=== PATIENT | male | born 1955 | race Caucasian/White ===

== ENCOUNTER 2019-05-03 11:03 | Observation (INO) | payer MEDICARE ==
[2019-05-03] MEDS ORDERED: TORAdol 30 mg Injection IV PRN (12:30)
[2019-05-03] MEDS ORDERED: Sodium Chloride 0.9% 1000 ML 1,000 ML IV STA (12:31)
[2019-05-03 13:05] LABS: Hematocrit 43.2 % (42-50); Hemoglobin 13.6 gm/dl (12.5-18.0); Mean Cell Volume 87.8 fl (78-100); Mean Corpuscular Hemoglobin 27.6 pg (26-32); Mean Corpuscular Hgb Concent. 31.5 g/dl (32-36); Mean Platelet Volume 11.5 fl (6-9.5); Platelet Count 211 K/mm3 (150-450); Red Blood Count 4.92 M/mm3 (4.1-5.6); Red Cell Distribution Width 21.1 % (11.5-14.0); White Blood Count 6.3 K/mm3 (4.0-10.5)
[2019-05-03 13:11] LABS: ALBUMIN 4.1 g/dL (3.5-5.0); ANION GAP 18.3 MEQ/L (5-15); BILIRUBIN,TOTAL 0.6 mg/dL (0.2-1.3); Calcium 9.4 mg/dL (8.4-10.2); Creatinine 1 1.33 mg/dL (0.66-1.25); Potassium 4.2 mmol/L (3.5-5.1); Total Protein 7.4 g/dL (6.3-8.2)
[2019-05-03] MEDS: Nicoderm CQ 21 MG TOP SCH (13:11)
--- NOTE | 2019-05-03 13:41 | XRAY ---
Indication: Short of breath. Comparison: October 29, 2006. PA/lateral chest hyperinflated with new subtle lingula infiltrate versus atelectasis. Remaining lungs clear with incidental right apical calcified granuloma. Heart is not enlarged with new moderate size hiatal hernia. Bony thorax intact. Impression: Again COPD with new lingula infiltrate/atelectasis and hiatal hernia.
--- NOTE | 2019-05-03 13:43 | XRAY ---
Indication: Chronic low back pain 30 years. Comparison: None 5 views of the lumbar spine demonstrates 5 lumbar vertebral segments in normal alignment with vertebral body heights/disc spaces maintained. Minimal multilevel endplate spurring, mild bilateral L5-S1 degenerative facet hypertrophy, scattered aortoiliac calcifications, and left-sided surgical clips. No acute fracture, subluxation, or pars interarticularis defect. Impression: Nonacute lumbar spine with chronic features.
[2019-05-03] MEDS: Flomax 0.4 MG PO SCH ×2 (13:54→22:28)
[2019-05-03] MEDS: PROVENTIL COMMON CANISTER IH SCH ×2 (13:58→17:30)
[2019-05-03] MEDS: XANAX 1 MG PO SCH ×2 (14:02→22:28)
[2019-05-03] MEDS: Sodium Chloride 0.9% 1000 ML 1,000 ML IV SCH (14:02)
[2019-05-03 19:42] LABS: Appearance SLIGHTLY CLOUDY (CLEAR); Bacteria MODERATE /HPF (NEGATIVE); Bilirubin NEGATIVE (NEGATIVE); Blood SMALL Ery/ul (0-5); Glucose 50 mg/dL (NEGATIVE); Ketones NEGATIVE (NEGATIVE); Leukocyte Esterase LARGE (NEGATIVE); Mucus SLIGHT /HPF (NEGATIVE); Nitrite POSITIVE (NEGATIVE); Protein,Urine Dip NEGATIVE (Negative); Specific Gravity 1.016 (1.005-1.025); Urobilinogen NEGATIVE mg/dL (0-1); WBC 26-50 /HPF (0-5)
[2019-05-03] MEDS ORDERED: Zocor 10MG PO SCH (22:00)
[2019-05-03] MEDS ORDERED: NON-FORMULARY ITEM (Lovastatin [Lovastatin] 10 MG) PO SCH (22:00)
[2019-05-03] MEDS: Lopressor 25MG Tab PO SCH (22:28)
[2019-05-04] MEDS: Sodium Chloride 0.9% 1000 ML 1,000 ML IV SCH (00:26)
[2019-05-04] MEDS ORDERED: PROVENTIL COMMON CANISTER IH SCH (07:00)
[2019-05-04 08:00] VITALS: O2SAT 93
[2019-05-04] MEDS: Lopressor 25MG Tab PO SCH (09:56)
[2019-05-04] MEDS: XANAX 1 MG PO SCH ×2 (09:56→14:48)
[2019-05-04] MEDS: Flomax 0.4 MG PO SCH (09:56)
[2019-05-04] MEDS: Nicoderm CQ 21 MG TOP SCH (09:57)
[2019-05-04] MEDS ORDERED: ROCEPHIN 1 Gm-D5w 50 ml Bag** 1 G/50 ML IVPB IV SCH (10:00)
[2019-05-04] MEDS ORDERED: Zithromax 500 MG/ 250 ML NaCl Premix 500 MG/250 ML IVPB IV SCH (10:00)
[2019-05-04 12:27] VITALS: BP 132/85; PULSE 93
--- NOTE | 2019-05-04 15:42 | PCM.SSS ---
History of Present Illness - Chief Complaint Chief Complaint: shortness of breath for 2-3 days History of Present Illness: see History and Physical from office - Review of Systems Constitutional: No Fever, No Chills Eyes: No Symptoms Ears, Nose, & Throat: No Symptoms Respiratory: Cough, Orthopnea, Short Of Breath, Wheezing Cardiac: No Chest Pain, No Edema, No Syncope Abdominal/Gastrointestinal: No Abdominal Pain, No Nausea, No Vomiting, No Diarrhea Genitourinary Symptoms: No Dysuria Musculoskeletal: No Back Pain, No Neck Pain Skin: No Rash Neurological: No Dizziness, No Focal Weakness, No Sensory Changes Psychological: No Symptoms Endocrine: No Symptoms Hematologic/Lymphatic: No Symptoms Immunological/Allergic: No Symptoms Medications & Allergies Home Medications: Home Medication List Alprazolam 1 mg [Xanax 1 mg] 1 mg PO TID 04/30/16 [History Confirmed 05/03] Lovastatin 10 mg PO HS 04/30/16 [History Confirmed 05/03/19] Tamsulosin HCl 0.4 mg [Flomax 0.4 MG] 0.4 mg PO BID 04/30/16 [History Confirmed 05/03/19] Metoprolol Tartrate 25 mg PO BID 05/03/19 [History Confirmed 05/03/19] Cephalexin Mh 500 mg [Keflex 500 mg] 500 mg PO QID #30 capsule 05/04/19 [Rx] Ketorolac Tromethamine [Toradol] 10 mg PO TID #20 tablet 05/04/19 [Rx] Allergies/Adverse Reactions: Allergies Allergy/AdvReac Type Severity Reaction Status Date / Time morphine Allergy Verified 05/03/19 13:29 - Past Medical History Past Medical History: Yes Neurological History: No Pertinent History ENT History: No Pertinent History Cardiac History: No Pertinent History Respiratory History: COPD Endocrine Medical History: No Pertinent History Musculoskelatal History: Other GI Medical History: GI Bleed, Ulcer History: Kidney Cancer Pyscho-Social History: Anxiety Male Reproductive Disorders: No Pertinent History Comment: traumatic injury to back - Past Surgical History Past Surgical History: Yes Cardiac History: No Pertinent History Respiratory Surgery: No Pertinent History GI Surgical History: No Pertinent History Genitourinary Surgical Hx: Kidney Surgery Musculskeletal Surgical Hx: No Pertinent History - Social History Smoking Status: Former smoker Alcohol: Daily Drug Use: none - Physical Exam Vital Signs: Vital Signs - 24 hr Temp Pulse Resp BP Pulse Ox 05/04/19 12:00 97.9 F 93 H 20 132/85 93 L 05/04/19 07:59 98.4 F 97 H 20 167/93 93 L 05/04/19 06:49 98 H 16 94 L 05/04/19 04:05 98.5 F 102 H 20 178/98 93 L 05/04/19 00:20 98.6 F 134 H 26 H 165/101 91 L 05/03/19 20:00 98.6 F 118 H 20 147/89 92 L 05/03/19 15:38 98.1 F 112 H 18 138/79 92 L General Appearance: no apparent distress, alert Neurologic Exam: alert, oriented x 3, cooperative, normal mood/affect, nml cerebellar function, nml station & gait, sensation nml, No motor deficits Eye Exam: PERRL/EOMI, eyes nml inspection Ears, Nose, Throat Exam: normal ENT inspection, TMs normal, pharynx normal, moist mucous membranes Neck Exam: normal inspection, non-tender, supple, full range of motion Respiratory Exam: crackles/rales, rhonchi, wheezing, No respiratory distress Cardiovascular Exam: regular rate/rhythm, normal heart sounds, normal peripheral pulses Gastrointestinal/Abdomen Exam: soft, normal bowel sounds, No tenderness, No mass Back Exam: normal inspection, normal range of motion, No CVA tenderness, No vertebral tenderness Extremity Exam: normal inspection, normal range of motion, pelvis stable Skin Exam: normal color, warm, dry, No rash Lymphatic Exam: No adenopathy Results - Labs Lab/Micro Results: Lab Results-Last 24 Hours 05/03/19 Range/Units 19:13 Urine Color YELLOW (YELLOW) Urine Appearance SLIGHTLY CLOUDY (CLEAR) Urine pH 5.0 (5-6) Ur Specific [place] 1.016 (1.005-1.025) Urine Protein NEGATIVE (Negative) Urine Ketones NEGATIVE (NEGATIVE) Urine Blood SMALL (0-5) Jose Alfredo/ul Urine Nitrite POSITIVE (NEGATIVE) Urine Bilirubin NEGATIVE (NEGATIVE) Urine Urobilinogen NEGATIVE (0-1) mg/dL Ur Leukocyte Esterase LARGE (NEGATIVE) Urine WBC (Auto) 26-50 (0-5) /HPF Urine RBC (Auto) NONE (0-2) /HPF U Epithel Cells (Auto) NONE (FEW) /HPF Urine Bacteria (Auto) MODERATE (NEGATIVE) /HPF Urine Mucus (Auto) SLIGHT (NEGATIVE) /HPF Urine Culture Reflexed YES (NO) Urine Glucose 50 (NEGATIVE) mg/dL - Radiology Impressions Radiology Exams & Impressions: Radiology Procedures Category Date Time Status CHEST 2 VIEWS (PA AND LAT) Routine Exams 05/03/19 13:27 Completed LUMBAR COMPLETE (MIN 4 VIEWS) Routine Exams 05/03/19 12:30 Completed Assessment/Plan (1) Pneumonia Current Visit: Yes Status: Acute Qualifiers: Pneumonia type: due to unspecified organism Laterality: right Assessment & Plan: PA/lateral chest hyperinflated with new subtle lingula infiltrate versus atelectasis. Remaining lungs clear with incidental right apical calcified granuloma. Heart is not enlarged with new moderate size hiatal hernia. Bony thorax intact. Impression: Again COPD with new lingula infiltrate/atelectasis and hiatal hernia. will start on rocephin and zithromax IV, then D/C home with oral cephalexin 500 mg po qid for 7 days Code(s): J18.9 - PNEUMONIA, UNSPECIFIED ORGANISM (2) UTI (urinary tract infection) Current Visit: Yes Status: Acute Qualifiers: Urinary tract infection type: site unspecified Hematuria presence: without hematuria Qualified Code(s): N39.0 - Urinary tract infection, site not specified Code(s): N39.0 - URINARY TRACT INFECTION, SITE NOT SPECIFIED Hospital Summary - Hospital Course Hospital Course: Chief Complaint Diagnosis shortness of breath for 2-3 days Allergies Allergy/AdvReac Type Severity Reaction Status Date / Time morphine Allergy Verified 05/03/19 13:29 Vital Signs (Last 24 hours) Temp Pulse Resp BP Pulse Ox 05/04/19 12:00 97.9 F 93 H 20 132/85 93 L 05/04/19 07:59 98.4 F 97 H 20 167/93 93 L 05/04/19 06:49 98 H 16 94 L 05/04/19 04:05 98.5 F 102 H 20 178/98 93 L 05/04/19 00:20 98.6 F 134 H 26 H 165/101 91 L 05/03/19 20:00 98.6 F 118 H 20 147/89 92 L Home Medications Medication Instructions Recorded Confirmed Last Taken Type Metoprolol Tartrate 25 mg PO BID 10/01/19 10/01/19 10/01/19 History 25 Current Medications Generic Name Dose Route Start Last Admin Trade Name Freq PRN Reason Stop Dose Admin Albuterol Sulfate 2 puff 05/04/19 07:00 05/04/19 06:47 Proventil Common Canister IH 06/02/19 06:59 2 puff 0700 JANELLE Administration Alprazolam 1 mg 05/03/19 15:00 05/04/19 14:48 Xanax 1 Mg PO 06/02/19 14:59 Not Given TID JANELLE Sodium Chloride 1,000 mls @ 100 mls/hr 05/03/19 13:45 05/04/19 00:26 Sodium Chloride 0.9% 1000 Ml IV 06/02/19 13:44 100 mls/hr .Q10H JANELLE Administration Azithromycin 500 mg in 250 mls @ 250 mls/hr 05/04/19 10:00 05/04/19 10:01 Zithromax 500 Mg/ 250 Ml Nacl Premix IV 06/03/19 09:59 250 mls/hr Q24H10 JANELLE Administration Ceftriaxone Sodium/Dextrose 1 g in 50 mls @ 100 mls/hr 05/04/19 10:00 09:23 Rocephin 1 Gm-D5w 50 Ml Bag IV 06/03/19 09:59 100 mls/hr Q24H10 JANELLE Administration Ketorolac Tromethamine 30 mg 05/03/19 12:30 05/04/19 04:36 Toradol 30 Mg Injection IV 05/08/19 12:29 30 mg Q8H PRN PRN Administration PAIN Metoprolol Tartrate 25 mg 05/03/19 22:00 05/04/19 09:56 Lopressor 25mg Tab PO 06/02/19 21:59 25 mg BID JANELLE Administration Nicotine 21 mg 05/03/19 12:30 05/04/19 09:57 Nicoderm Cq 21 Mg TOP 06/02/19 12:29 21 mg Q24H10 JNAELLE Administration Simvastatin 5 mg 05/03/19 22:00 05/03/19 22:30 Zocor 10mg PO 06/02/19 21:59 5 mg HS JANELLE Administration Tamsulosin HCl 0.4 mg 05/03/19 14:00 05/04/19 09:56 Flomax 0.4 Mg PO 06/02/19 13:59 0.4 mg BID JANELLE Administration Discontinued Medications Generic Name Dose Route Start Last Admin Trade Name Lucille PRN Reason Stop Dose Admin Albuterol Sulfate 2 puff 05/03/19 07:00 05/03/19 17:30 Proventil Common Canister IH 06/02/19 06:59 Not Given DAILY JANELLE Sodium Chloride 1,000 mls @ 999 mls/hr 05/03/19 12:31 05/03/19 13:10 Sodium Chloride 0.9% 1000 Ml IV 05/03/19 13:31 999 mls/hr .Q1H1M STA Administration Intake & Output (Last 24 hours) 05/02/19 05/03/19 05/04/19 05/05/19 11:59 11:59 11:59 11:59 Intake Total 3804 Output Total 1000 Balance 2804 Weight 88.1 kg Microbiology Results (Last 24 hours) 05/03/19 19:13 Clean Catch Midstream Urine Culture - Pending Laboratory Results (Last 24 hours) 05/03/19 19:13 Urine Color YELLOW Urine Appearance SLIGHTLY CLOUDY Urine pH 5.0 Ur Specific [place] 1.016 Urine Protein NEGATIVE Urine Ketones NEGATIVE Urine Blood SMALL Urine Nitrite POSITIVE Urine Bilirubin NEGATIVE Urine Urobilinogen NEGATIVE Ur Leukocyte Esterase LARGE Urine WBC (Auto) 26-50 Urine RBC (Auto) NONE U Epithel Cells (Auto) NONE Urine Bacteria (Auto) MODERATE Urine Mucus (Auto) SLIGHT Urine Culture Reflexed YES Urine Glucose 50 Orders (Last 24 hours) Category Date Time Status CULTURE,URINE Routine Lab 05/03/19 19:13 Received UA W/RFX UR CULTURE Routine Lab 05/03/19 19:13 Completed Albuterol Common Canister [Proventil Common Canister Med 05/04/19 07:00 Active ] 2 puff IH 0700 Alprazolam 1 mg [Xanax 1 mg] Med 05/03/19 15:00 Active 1 mg PO TID Azithromycin 500 mg/250 ml [Zithromax 500 MG/ 250 ML Med 05/04/19 10:00 Active NaCl Premix] 500 mg in 250 ml IV Q24H10 Ceftriaxone 1 GM/50 ML PREMIX* [ROCEPHIN 1 Gm-D5w 50 ml Med 05/04/19 10:00 Active Bag] 1 g in 50 ml IV Q24H10 Metoprolol Tartrate 25 mg [Lopressor 25MG Tab] Med 05/03/19 22:00 Active 25 mg PO BID Simvastatin 10 mg [Zocor 10MG] Med 05/03/19 22:00 Active 5 mg PO HS Pulse Oximetry .spot check RT 05/04/19 07:00 Active - Vitals & Intake/Output Vital Signs: Vital Signs Temperature 97.9 F 05/04/19 12:00 Pulse Rate 93 H 05/04/19 12:00 Respiratory Rate 20 05/04/19 12:00 Blood Pressure 132/85 05/04/19 12:00 O2 Sat by Pulse Oximetry 93 L 05/04/19 12:00 Intake & Output: Intake & Output 05/02/19 05/03/19 05/04/19 05/05/19 11:59 11:59 11:59 11:59 Intake Total 3804 Output Total 1000 Balance 2804 Weight 88.1 kg - Lab Result Diagrams: 05/03/19 12:15 05/03/19 12:15 Lab Results-Last 24 Hrs: Lab Results-Last 24 Hours 05/03/19 Range/Units 19:13 Urine Color YELLOW (YELLOW) Urine Appearance SLIGHTLY CLOUDY (CLEAR) Urine pH 5.0 (5-6) Ur Specific [place] 1.016 (1.005-1.025) Urine Protein NEGATIVE (Negative) Urine Ketones NEGATIVE (NEGATIVE) Urine Blood SMALL (0-5) Jose Alfredo/ul Urine Nitrite POSITIVE (NEGATIVE) Urine Bilirubin NEGATIVE (NEGATIVE) Urine Urobilinogen NEGATIVE (0-1) mg/dL Ur Leukocyte Esterase LARGE (NEGATIVE) Urine WBC (Auto) 26-50 (0-5) /HPF Urine RBC (Auto) NONE (0-2) /HPF U Epithel Cells (Auto) NONE (FEW) /HPF Urine Bacteria (Auto) MODERATE (NEGATIVE) /HPF Urine Mucus (Auto) SLIGHT (NEGATIVE) /HPF Urine Culture Reflexed YES (NO) Urine Glucose 50 (NEGATIVE) mg/dL - Radiology Exams Ordered Rad Exams-Entire Visit: Radiology Procedures Category Date Time Status CHEST 2 VIEWS (PA AND LAT) Routine Exams 05/03/19 13:27 Completed LUMBAR COMPLETE (MIN 4 VIEWS) Routine Exams 05/03/19 12:30 Completed - Procedures and Test Procedures and Tests throughout Hospitalization: Therapy Orders & Screens 05/03/19 07:00 Respiratory Therapy Assessment DAILY Comment: Diagnosis: shortness of breath 05/03/19 12:27 EKG ROUTINE Comment: Diagnosis: shortness of breath - Discharge Discharge Date: 05/04/19 Disposition: Home, Self-Care Condition: Stable Prescriptions: New Cephalexin Mh 500 mg [Keflex 500 mg] 500 mg PO QID #30 capsule Ketorolac Tromethamine [Toradol] 10 mg PO TID #20 tablet Continue Lovastatin 10 mg PO HS Tamsulosin HCl 0.4 mg [Flomax 0.4 MG] 0.4 mg PO BID Alprazolam 1 mg [Xanax 1 mg] 1 mg PO TID Metoprolol Tartrate 25 mg PO BID Follow up with: ANA ROCA MD [Primary Care Provider] - 1 Week
== END 2019-05-04 16:28 | disposition home or self-care (01) ==
LOC: MED SURG 11:22
PROVIDERS: ADMIT General Practice; ATTEND General Practice
DX: J18.9 Pneumonia, unspecified organism (principal); N39.0 Urinary tract infection, site not specified; J44.9 Chronic obstructive pulmonary disease, unspecified; Z79.899 Other long term (current) drug therapy
CPT/HCPCS: 36415; 71046; 72110; 80053; 81001; 84484; 85027; 87077; 87086; 87186; 93005; 94640; 94760; G0378; J0456; J0696; J1885; A9270-GY

== ENCOUNTER 2021-04-03 17:13 | Day surgery (SDC) | payer MEDICARE ==
[2021-04-03] MEDS ORDERED: Sodium Chloride 0.9(Preservative Free) 10 ML IJ ONE (17:14)
[2021-04-03] MEDS ORDERED: Depo-Medrol 40 MG/ML IM ONE (17:14)
[2021-04-03] MEDS ORDERED: Xylocaine 1% Vial 30 ML PF IJ ONE (17:14)
--- NOTE | 2021-04-03 21:38 | XRAY ---
Indication: Left L4-S1 transforaminal RAS. Intraoperative fluoroscopy provided for 25 seconds. 4 digital spot image submitted for interpretation demonstrates posterior needle tips projecting over the expected left L4 and L5 nerve roots. Small amount of contrast injected for needle tip placement. Correlate with intraoperative findings/report.
--- NOTE | 2021-04-04 09:44 | XRAY ---
25 seconds of fluoroscopy was used in surgery for a left L4-S1 transforaminal RAS.
== END 2021-04-03 20:20 | disposition home or self-care (01) ==
LOC: SDC-PAIN 17:13
PROVIDERS: ATTEND Psychiatry & Neurology Pain Medicine
DX: M54.16 Radiculopathy, lumbar region (principal); Z79.899 Other long term (current) drug therapy
CPT/HCPCS: 64483; 64484; 72100; 77003; J1030; J2001; Q9966

== ENCOUNTER 2021-04-17 07:59 | Day surgery (SDC) | payer MEDICARE ==
[2021-04-17] MEDS ORDERED: Depo-Medrol 40 MG/ML IM ONE (08:00)
[2021-04-17] MEDS ORDERED: LIDOCAINE HCL 2% 100 MG/5 ML IJ ONE (08:00)
[2021-04-17] MEDS ORDERED: Lactated Ringers 1,000 ML IV ONE (09:02)
[2021-04-17] MEDS ORDERED: DIPRIVAN 200 MG/20 ML IV ONE (09:24)
--- NOTE | 2021-04-17 12:01 | XRAY ---
Indication: Bilateral L4-S1 MBB. Intraoperative fluoroscopy provided for 8 seconds. Single digital spot image submitted for interpretation demonstrate posterior needle tips projecting over the expected left and right L4-S1 nerve roots. Correlate with intraoperative findings/report.
--- NOTE | 2021-04-17 12:40 | XRAY ---
8 seconds fluoroscopy time in surgery for bilateral L4-S1 MBB.
== END 2021-04-17 09:47 | disposition home or self-care (01) ==
LOC: SDC-PAIN 07:59
PROVIDERS: ATTEND Psychiatry & Neurology Pain Medicine
DX: M47.816 Spondylosis without myelopathy or radiculopathy, lumbar region (principal); Z79.899 Other long term (current) drug therapy
CPT/HCPCS: 64493; 64494; 72020; 77002; J1030; J2704

== ENCOUNTER → 2021-09-19 | Emergency (ER) | payer MEDICARE | END | disposition left against medical advice (07) | LOC: ED 13:22 | DX: Z53.9 Procedure and treatment not carried out, unspecified reason (principal) ==

== ENCOUNTER 2023-04-17 23:26 | Emergency (ER) | payer MEDICARE ==
[2023-04-17] MEDS ORDERED: BABY ASPIRIN 81 MG CHEW PO ONE (23:39)
[2023-04-17] MEDS ORDERED: Sodium Chloride 0.9% 1000 ML 1,000 ML IV STA (23:39)
--- NOTE | 2023-04-17 23:43 | ERPHSYRPT ---
- History of Present Illness Time Seen by Provider: 04/17/23 23:28 Historian: patient Physician History: Pt states he has had mid-right chest pain radiating down his right arm for the past 3 days; denies SOA, vomiting, fever, abdominal pain. Aspirin Treatment Today: unknown Allergies/Adverse Reactions: morphine Allergy (Verified 04/17/23 23:28) Penicillins Allergy (Verified 04/17/23 23:28) Home Medications: ALPRAZolam 1 MG [Xanax 1 mg] 1 mg PO TID 04/30/16 [History] Lovastatin 10 mg PO HS 04/30/16 [History] Tamsulosin HCl 0.4 mg [Flomax 0.4 MG] 0.4 mg PO BID 04/30/16 [History] Metoprolol Tartrate 25 mg PO BID 05/03/19 [History] - Review of Systems Constitutional: No Fever Respiratory: No Dyspnea Cardiac: Chest Pain Abdominal/Gastrointestinal: No Abdominal Pain, No Nausea, No Vomiting Neurological: No Headache - Past Medical History Pertinent Past Medical History: Yes Neurological History: No Pertinent History ENT History: No Pertinent History Cardiac History: No Pertinent History Respiratory History: COPD Endocrine Medical History: No Pertinent History Musculoskeletal History: Other GI Medical History: GI Bleed, Ulcer History: Kidney Cancer Psycho-Social History: Anxiety Male Reproductive Disorders: No Pertinent History Other Medical History: traumatic injury to back - Past Surgical History Past Surgical History: Yes Cardiac: No Pertinent History Respiratory: No Pertinent History Gastrointestinal: No Pertinent History Genitourinary: Kidney Surgery Musculoskeletal: No Pertinent History - Social History Smoking Status: Former smoker Drug Use: none - Nursing Vital Signs Nursing Vital Signs: Initial Vital Signs Temperature 97.6 F 04/17/23 23:30 Pulse Rate 116 H 04/17/23 23:30 Respiratory Rate 20 04/17/23 23:30 Blood Pressure 186/120 04/17/23 23:30 O2 Sat by Pulse Oximetry 96 04/17/23 23:30 Pain Scale Pain Intensity 5 - Physical Exam General Appearance: alert Eye Exam: other (left pupillary defect from prior trauma) Ears, Nose, Throat Exam: pharynx normal Neck Exam: normal inspection Respiratory Exam: normal breath sounds Cardiovascular Exam: normal heart sounds Neurologic Exam: alert, cooperative Skin Exam: warm, dry - Course EKG Interpreted by Me: RATE ([id number]), Sinus Tach, NORMAL AXIS, ST Elev (II, III, aVF), Ischemic ST-T changes Ordered Tests: Active Orders 24 hr Category Date Time Status Oxygen-ED Only Nasal Cannula 2 lpm Care 04/17/23 23:39 Active CHEST 1 VIEW (PORTABLE) Stat Exams 04/17/23 23:41 Ordered AMYLASE Stat Lab 04/17/23 23:45 Received CBC W DIFF Stat Lab 04/17/23 23:45 Completed CMP Stat Lab 04/17/23 23:45 Received LIPASE Stat Lab 04/17/23 23:45 Received MAGNESIUM Stat Lab 04/17/23 23:45 Received TROPONIN Q4H Lab 04/17/23 23:45 Received TROPONIN Q4H Lab 04/18/23 03:45 Ordered TROPONIN Q4H Lab 04/18/23 07:45 Ordered Medication Summary Generic Name Dose Route Start Last Admin Trade Name Freq PRN Reason Stop Dose Admin Sodium Chloride 1,000 mls @ 999 mls/hr 04/17/23 23:39 04/17/23 23:46 Sodium Chloride 0.9% 1000 Ml IV 04/18/23 00:39 999 mls/hr .Q1H1M STA Administration Discontinued Medications Generic Name Dose Route Start Last Admin Trade Name Freq PRN Reason Stop Dose Admin Aspirin 324 mg 04/17/23 23:39 04/17/23 23:48 Aspirin 81 Mg Tab.Chew PO 04/17/23 23:40 324 mg STAT ONE Administration Aspirin Confirm 04/17/23 23:44 Aspirin 81 Mg Tab.Chew Administered 04/17/23 23:45 Dose 324 mg .ROUTE .STK-MED ONE Sodium Chloride Confirm 04/17/23 23:44 Sodium Chloride 0.9% 1000 Ml Administered 04/17/23 23:45 Dose 1,000 mls @ ud .ROUTE .STK-MED ONE Lab/Rad Data: Laboratory Result Diagrams 04/17/23 23:45 Laboratory Results 04/17/23 Range/Units 23:45 WBC 10.4 (4.0-10.5) x10^3/uL RBC 4.56 (4.1-5.6) x10^6/uL Hgb 10.8 L (12.5-18.0) g/dL Hct 36.5 L (42-50) % MCV 80.0 (78-100) fL MCH 23.7 L (26-32) pg MCHC 29.6 L (32-36) g/dL RDW 18.7 H (11.5-14.0) % Plt Count 200 (150-450) x10^3/uL MPV 10.3 (7.5-11.0) fL Gran % 72.9 H (36.0-66.0) % Immature Gran % (Auto) 0.5 H (0.00-0.4) % Nucleat RBC Rel Count 0.0 (0.00-0.1) % Eos # (Auto) 0.33 (0-0.5) x10^3/uL Immature Gran # (Auto) 0.05 H (0.00-0.03) x10^3u/L Absolute Lymphs (auto) 1.55 (1.0-4.6) x10^3/uL Absolute Monos (auto) 0.76 (0.0-1.3) x10^3/uL Absolute Nucleated RBC 0.00 (0.00-0.01) x10^3u/L Lymphocytes % 14.9 L (24.0-44.0) % Monocytes % 7.3 (0.0-12.0) % Eosinophils % 3.2 (0.00-5.0) % Basophils % 1.2 (0.0-0.4) % Absolute Granulocytes 7.56 H (1.4-6.9) x10^3/uL Basophils # 0.12 (0-0.4) x10^3/uL - Progress Discussed with : Other (Spoke with Dr. Blum([id number]) who accepted pt for transfer to [facility].) Medical Desision Making - Diagnostic Testing Diagnostic test were ordered, analyzed, and reviewed by me: Yes Radiological Interpretation: Interpreted by me - Departure Departure Disposition: Transfer ([facility]) Clinical Impression: inferior wall myocardial infarction Condition: Stable Critical Care Time: No Referrals: ANA ROCA MD [Primary Care Provider] - Follow up/PCP as directed
[2023-04-17] MEDS ORDERED: Sodium Chloride 0.9% 1000 ML 1,000 ML ONE (23:44)
[2023-04-17] MEDS ORDERED: BABY ASPIRIN 81 MG CHEW ONE (23:44)
[2023-04-17 23:47] LABS: Absolute Neutrophil Ct (ANC) 7.56 x10^3/uL (1.4-6.9); BASOPHIL % 1.2 % (0.0-0.4); Basophil (Absolute #) 0.12 x10^3/uL (0-0.4); Eosinophil % 3.2 % (0.00-5.0); Eosinophil (Absolute #) 0.33 x10^3/uL (0-0.5); Hematocrit 36.5 % (42-50); Hemoglobin 10.8 g/dL (12.5-18.0); IMMATURE GRAN # 0.05 x10^3u/L (0.00-0.03); IMMATURE GRAN % 0.5 % (0.00-0.4); Lymphocyte (Absolute #) 1.55 x10^3/uL (1.0-4.6); Lymphocytes % 14.9 % (24.0-44.0); Mean Corpuscular Hemoglobin 23.7 pg (26-32); Mean Corpuscular Hgb Concent. 29.6 g/dL (32-36); Mean Platelet Volume 10.3 fL (7.5-11.0); Monocyte (Absolute #) 0.76 x10^3/uL (0.0-1.3); Monocytes % 7.3 % (0.0-12.0); Neutrophil % 72.9 % (36.0-66.0); Platelet Count 200 x10^3/uL (150-450); Red Blood Count 4.56 x10^6/uL (4.1-5.6); Red Cell Distribution Width 18.7 % (11.5-14.0); White Blood Count 10.4 x10^3/uL (4.0-10.5)
[2023-04-17 23:48] VITALS: TEMP 97.6
[2023-04-17 23:58] VITALS: BP 153/99; PULSE 93; RESP 22; O2SAT 95
[2023-04-18 00:01] LABS: ALBUMIN 4.1 g/dL (3.5-5.0); ANION GAP 16.8 MEQ/L (5-15); BILIRUBIN,TOTAL 0.4 mg/dL (0.2-1.3); Calcium 8.7 mg/dL (8.4-10.2); Creatinine 1 1.51 mg/dL (0.66-1.25); EST GLOMERULAR FILTRATION RATE 48.9 ML/MIN; MAGNESIUM 1.8 mg/dL (1.6-2.3); Potassium 4.5 mmol/L (3.5-5.1)
== END 2023-04-17 23:54 | disposition short-term general hospital (02) ==
LOC: ED 23:26
DX: I21.19 ST elevation (STEMI) myocardial infarction involving other coronary artery of inferior wall (principal); R07.9 Chest pain, unspecified; Z79.899 Other long term (current) drug therapy
CPT/HCPCS: 36000; 36415; 80053; 82150; 83690; 83735; 84484; 85025; 93005; 99285; A9270-GY

== ENCOUNTER 2023-10-03 13:07 | Emergency (ER) | payer MEDICARE ==
[2023-10-03] MEDS ORDERED: Sodium Chloride 0.9% 1000 ML 1,000 ML ONE ×2 (13:17→16:25)
[2023-10-03] MEDS ORDERED: PROTONIX 40 MG IV IV ONE (13:21)
[2023-10-03] MEDS ORDERED: Zofran 4 MG/2 ML VIAL ONE (13:21)
[2023-10-03] MEDS: Zofran 4 MG/2 ML VIAL IV ONE (13:23)
[2023-10-03] MEDS: PROTONIX 40 MG IV IV ONE (13:24)
[2023-10-03] MEDS: Sodium Chloride 0.9% 1000 ML 1,000 ML IV SCH (13:24)
[2023-10-03] MEDS: PROTONIX 40 MG IV*** 80 MG in Sodium Chloride 0.9% 500 ML 500 ML IV SCH (13:39)
[2023-10-03 13:50] LABS: Absolute Neutrophil Ct (ANC) 7.82 x10^3/uL (1.4-6.9); BASOPHIL % 0.3 % (0.0-0.4); Basophil (Absolute #) 0.03 x10^3/uL (0-0.4); Eosinophil % 0.5 % (0.00-5.0); Eosinophil (Absolute #) 0.05 x10^3/uL (0-0.5); Hematocrit 25.3 % (42-50); Hemoglobin 8.3 g/dL (12.5-18.0); IMMATURE GRAN # 0.04 x10^3u/L (0.00-0.03); IMMATURE GRAN % 0.4 % (0.00-0.4); Lymphocytes % 8.6 % (24.0-44.0); Mean Cell Volume 91.3 fL (78-100); Mean Corpuscular Hgb Concent. 32.8 g/dL (32-36); Mean Platelet Volume 11.4 fL (7.5-11.0); Monocyte (Absolute #) 0.54 x10^3/uL (0.0-1.3); Monocytes % 5.8 % (0.0-12.0); Neutrophil % 84.4 % (36.0-66.0); Platelet Count 159 x10^3/uL (150-450); Red Blood Count 2.77 x10^6/uL (4.1-5.6); White Blood Count 9.3 x10^3/uL (4.0-10.5)
--- NOTE | 2023-10-03 13:58 | ERPHSYRPT ---
- History of Present Illness Time Seen by Provider: 10/03/23 13:09 Source: patient, EMS Patient Subjective Stated Complaint: vomiting, diarrhea, coffee ground emesis x 3 days Triage Nursing Assessment: Pt brought to the ER, hypotensive, denies pain, coffee ground emesis found in the trash, weak, unable to walk today, began having some chest pain today, pulses normal, skin pale/cool/dry, placed on 5L NC Physician History: 68 years old male with a history of COPD, hypertension, hyperlipidemia, peptic ulcers, GI bleed on ferrous sulfate, regular alcohol consumption presented in the ER via EMS with 3 days history of coffee-ground emesis along with minimal abdominal discomfort and black tarry stool. Patient reports he is not able to hold much down and is been feeling very weak fatigued and tired. He can hardly get up and ambulate as he gets dizzy lightheaded and feels as if he is going to pass out. He started to feeling some shortness of breath with activity as well. He denies any chest pain. Patient reported initially it started as a subjective feeling of fever chills and mild cough followed by gastroenteritis symptoms 3 days ago. Currently afebrile. On EMS arrival patient blood pressure systolic was in 60s, he is given a fluid bolus, 1 g of TXA as patient did have witnessed coffee-ground emesis and on arrival in the ER after liter bolus his pressure is in 90s. Patient is on 4 L oxygen with saturation around 96%. He d enies any chest pain or palpitations. Allergies/Adverse Reactions: morphine Allergy (Verified 10/03/23 13:31) Penicillins Allergy (Verified 10/03/23 13:31) Home Medications: ALPRAZolam 1 MG [Xanax 1 mg] 1 mg PO TID PRN 04/30/16 [History] Tamsulosin HCl 0.4 mg [Flomax 0.4 MG] 0.4 mg PO BID 04/30/16 [History] Metoprolol Tartrate 50 mg PO BID 05/03/19 [History] Allopurinol 100 mg [Zyloprim 100 mg] 100 mg PO BID 10/03/23 [History] Amlodipine Besylate 5 mg PO DAILY 10/03/23 [History] Aspirin 81 gm Chew [Baby Aspirin 81 mg Chew] 81 mg PO DAILY 10/03/23 [History] Atorvastatin Calcium 80 mg PO DAILY 10/03/23 [History] Cyclobenzaprine HCl 10 mg [Cyclobenzaprine 10 MG] 10 mg PO TID 10/03/23 [History] Ezetimibe [Zetia] 10 mg PO DAILY 10/03/23 [History] Ferrous Fumarate [Ferrocite] 324 mg PO DAILY 10/03/23 [History] Lisinopril 20 mg [Zestril 20 MG] 20 mg PO DAILY 10/03/23 [History] Omeprazole 20 mg PO BID 10/03/23 [History] PARoxetine HCL [Paxil] 20 mg PO DAILY 10/03/23 [History] Ticagrelor [Brilinta] 90 mg PO BID 10/03/23 [History] Hx Tetanus, Diphtheria Vaccination/Date Given: Yes Hx Influenza Vaccination/Date Given: Yes Hx Pneumococcal Vaccination/Date Given: ([place]) Travel Risk - International Travel Have you traveled outside of the country in past 3 weeks: No - Coronavirus Screening Are you exhibiting any of the following symptoms?: Yes Symptoms: Vomiting/Diarrhea Close contact with a COVID-19 positive Pt in past 14-21 Days: No - Vaccine Status Have you recieved a Covid-19 vaccination: Yes [employer] Supervisor: [employer] - Vaccination Dates Date of 2cond Vaccination (if applicable): unknown - Review of Systems Constitutional: Fatigue, Weakness Eyes: No Symptoms Ears, Nose, & Throat: No Symptoms Respiratory: Cough, Dyspnea Cardiac: No Symptoms Abdominal/Gastrointestinal: Abdominal Pain, Nausea, Vomiting, Melena Genitourinary Symptoms: No Symptoms Musculoskeletal: Arthralgias Skin: No Symptoms Neurological: Dizziness Psychological: Alcohol Abuse Endocrine: No Symptoms Hematologic/Lymphatic: No Symptoms Immunological/Allergic: No Symptoms - Past Medical History Pertinent Past Medical History: Yes Neurological History: No Pertinent History ENT History: No Pertinent History Cardiac History: No Pertinent History Respiratory History: COPD Endocrine Medical History: No Pertinent History Musculoskeletal History: Other GI Medical History: GI Bleed, Ulcer History: Kidney Cancer Psycho-Social History: Anxiety Male Reproductive Disorders: No Pertinent History Other Medical History: traumatic injury to back - Past Surgical History Past Surgical History: Yes Neuro Surgical History: No Pertinent History Cardiac: No Pertinent History Respiratory: No Pertinent History Gastrointestinal: No Pertinent History Genitourinary: Kidney Surgery Musculoskeletal: No Pertinent History Male Surgical History: No Pertinent History Other Surgical History: trauma facial reconstruction, right nephrectomy, - Social History Smoking Status: Former smoker Exposure to second hand smoke: No Drug Use: none Patient Lives Alone: Yes - Nursing Vital Signs Nursing Vital Signs: Initial Vital Signs Temperature 97.1 F 10/03/23 13:08 Pulse Rate 97 H 10/03/23 13:08 Respiratory Rate 24 10/03/23 13:08 Blood Pressure 91/73 10/03/23 13:08 O2 Sat by Pulse Oximetry 92 L 10/03/23 13:08 Pain Scale Pain Intensity 0 - Physical Exam General Appearance: no apparent distress, alert Eye Exam: PERRL/EOMI Ears, Nose, Throat Exam: normal ENT inspection, TMs normal, pharynx normal, moist mucous membranes Neck Exam: normal inspection, non-tender, supple, full range of motion Respiratory Exam: normal breath sounds, lungs clear Cardiovascular Exam: regular rate/rhythm, normal heart sounds Gastrointestinal/Abdomen Exam: soft, normal bowel sounds, tenderness Extremity Exam: normal inspection, normal range of motion, pelvis stable Neurologic Exam: alert, oriented x 3, cooperative, community resource officer II-XII nml as tested Skin Exam: normal color SpO2 Interpretation: O2 applied SpO2: 92 O2 Delivery: Room Air - Course EKG Interpreted by Me: RATE (97), Sinus Rhythm, NORMAL AXIS, NORMAL INTERVALS, Other (Nonspecific T wave changes) Ordered Tests: Medication Summary Discontinued Medications Generic Name Dose Route Start Last Admin Trade Name Freq PRN Reason Stop Dose Admin Aztreonam Confirm 10/03/23 19:10 Aztreonam 1 Gm Vial Administered 10/03/23 19:11 Dose 2 gm .ROUTE .STK-MED ONE Sodium Chloride 1,000 mls @ 125 mls/hr 10/03/23 13:15 10/03/23 13:24 Sodium Chloride 0.9% 1000 Ml IV 11/02/23 13:14 125 mls/hr .Q8H JANELLE Administration Pantoprazole Sodium 80 mg/ 500 mls @ 50 mls/hr 10/03/23 13:15 10/03/23 13:39 Sodium Chloride IV 11/02/23 13:14 50 ml /hr .Q10H JANELLE 50 mls/hr Administration Sodium Chloride Confirm 10/03/23 14:33 Sodium Chloride 0.9% 500 Ml Administered 10/03/23 14:34 Dose 500 mls @ ud IV .STK-MED ONE Aztreonam 2 gm/ Sodium 100 mls @ 200 mls/hr 10/03/23 16:21 10/03/23 19:35 Chloride IV 10/03/23 16:50 200 mls/hr STAT ONE Administration Azithromycin 500 mg in 250 mls @ 250 mls/hr 10/03/23 16:22 10/03/23 16:50 Zithromax 500 Mg/ 250 Ml Nacl Premix IV 10/03/23 17:21 250 mls/hr STAT ONE Administration Azithromycin Confirm 10/03/23 16:46 Zithromax 500 Mg/ 250 Ml Nacl Premix Administered 10/03/23 16:47 Dose 500 mg in 250 mls @ ud IV .STK-MED ONE Sodium Chloride Confirm 10/03/23 19:10 Sodium Chloride 0.9% Administered 10/03/23 19:11 Dose 100 mls @ ud .ROUTE .STK-MED ONE Sodium Chloride Confirm 10/03/23 13:17 Sodium Chloride 0.9% 1000 Ml Administered 10/03/23 13:18 Dose 1,000 mls @ ud .ROUTE .STK-MED ONE Sodium Chloride Confirm 10/03/23 16:25 Sodium Chloride 0.9% 1000 Ml Administered 10/03/23 16:26 Dose 1,000 mls @ ud .ROUTE .STK-MED ONE Ondansetron HCl 4 mg 10/03/23 13:09 10/03/23 13:23 Ondansetron Hcl 4 Mg/2 Ml Vial IV 10/03/23 13:10 4 mg STAT ONE Administration Ondansetron HCl Confirm 10/03/23 13:21 Ondansetron Hcl 4 Mg/2 Ml Vial Administered 10/03/23 13:22 Dose 4 mg .ROUTE .STK-MED ONE Pantoprazole Sodium 80 mg 10/03/23 13:09 10/03/23 13:24 Pantoprazole 40 Mg Vial IV 10/03/23 13:10 80 mg STAT ONE Administration Pantoprazole Sodium Confirm 10/03/23 13:21 Pantoprazole 40 Mg Vial Administered 10/03/23 13:22 Dose 80 mg IV .STK-MED ONE Lab/Rad Data: Laboratory Result Diagrams 10/03/23 13:49 10/03/23 13:49 Laboratory Results 10/03/23 10/03/23 10/03/23 Range/Units 17:10 13:50 13:49 WBC (4.0-10.5) x10^3/uL RBC (4.1-5.6) x10^6/uL Hgb (12.5-18.0) g/dL Hct (42-50) % MCV (78-100) fL MCH (26-32) pg MCHC (32-36) g/dL RDW (11.5-14.0) % Plt Count (150-450) x10^3/uL MPV (7.5-11.0) fL Gran % (36.0-66.0) % Immature Gran % (Auto) (0.00-0.4) % Nucleat RBC Rel Count (0.00-0.1) % Eos # (Auto) (0-0.5) x10^3/uL Immature Gran # (Auto) (0.00-0.03) x10^3u/L Absolute Lymphs (auto) (1.0-4.6) x10^3/uL Absolute Monos (auto) (0.0-1.3) x10^3/uL Absolute Nucleated RBC (0.00-0.01) x10^3u/L Lymphocytes % (24.0-44.0) % Monocytes % (0.0-12.0) % Eosinophils % (0.00-5.0) % Basophils % (0.0-0.4) % Absolute Granulocytes (1.4-6.9) x10^3/uL Basophils # (0-0.4) x10^3/uL PT (9.4-12.5) SECONDS INR (0.8-3.0) APTT (25.1-36.5) SECONDS Sodium (137-145) mmol/L Potassium (3.5-5.1) mmol/L Chloride (98-107) mmol/L Carbon Dioxide (22-30) mmol/L Anion Gap (5-15) MEQ/L BUN (9-20) mg/dL Creatinine (0.66-1.25) mg/dL Estimated GFR ML/MIN Glucose (74-106) mg/dL Lactic Acid (0.4-2.0) Calcium (8.4-10.2) mg/dL Total Bilirubin (0.2-1.3) mg/dL AST (17-59) U/L ALT (0-50) U/L Alkaline Phosphatase (38-126) U/L Troponin I < 0.012 < 0.012 (0.000-0.034) ng/mL Serum Total Protein (6.3-8.2) g/dL Albumin (3.5-5.0) g/dL Ethyl Alcohol (0-10) mg/dL ABO Group Rh Factor Antibody Screen (NEGATIVE) Crossmatch COMPATIBLE (COMPATIBLE) 10/03/23 10/03/23 10/03/23 Range/Units 13:49 13:49 13:49 WBC (4.0-10.5) x10^3/uL RBC (4.1-5.6) x10^6/uL Hgb (12.5-18.0) g/dL Hct (42-50) % MCV (78-100) fL MCH (26-32) pg MCHC (32-36) g/dL RDW (11.5-14.0) % Plt Count (150-450) x10^3/uL MPV (7.5-11.0) fL Gran % (36.0-66.0) % Immature Gran % (Auto) (0.00-0.4) % Nucleat RBC Rel Count (0.00-0.1) % Eos # (Auto) (0-0.5) x10^3/uL Immature Gran # (Auto) (0.00-0.03) x10^3u/L Absolute Lymphs (auto) (1.0-4.6) x10^3/uL Absolute Monos (auto) (0.0-1.3) x10^3/uL Absolute Nucleated RBC (0.00-0.01) x10^3u/L Lymphocytes % (24.0-44.0) % Monocytes % (0.0-12.0) % Eosinophils % (0.00-5.0) % Basophils % (0.0-0.4) % Absolute Granulocytes (1.4-6.9) x10^3/uL Basophils # (0-0.4) x10^3/uL PT 10.9 (9.4-12.5) SECONDS INR 1.00 (0.8-3.0) APTT 22.0 L (25.1-36.5) SECONDS Sodium 136 L (137-145) mmol/L Potassium 3.7 (3.5-5.1) mmol/L Chloride 111 H (98-107) mmol/L Carbon Dioxide 13 L* (22-30) mmol/L Anion Gap 15.3 H (5-15) MEQ/L BUN 105 H (9-20) mg/dL Creatinine 2.20 H (0.66-1.25) mg/dL Estimated GFR 31.4 ML/MIN Glucose 105 (74-106) mg/dL Lactic Acid (0.4-2.0) Calcium 7.8 L (8.4-10.2) mg/dL Total Bilirubin 0.70 (0.2-1.3) mg/dL AST 100 H (17-59) U/L ALT 228 H (0-50) U/L Alkaline Phosphatase 129 H (38-126) U/L Troponin I (0.000-0.034) ng/mL Serum Total Protein 5.0 L (6.3-8.2) g/dL Albumin 2.6 L (3.5-5.0) g/dL Ethyl Alcohol < 10 (0-10) mg/dL ABO Group O Rh Factor NEGATIVE Antibody Screen NEGATIVE (NEGATIVE) Crossmatch COMPATIBLE (COMPATIBLE) 10/03/23 10/03/23 Range/Units 13:49 13:44 WBC 9.3 (4.0-10.5) x10^3/uL RBC 2.77 L (4.1-5.6) x10^6/uL Hgb 8.3 L (12.5-18.0) g/dL Hct 25.3 L (42-50) % MCV 91.3 (78-100) fL MCH 30.0 (26-32) pg MCHC 32.8 (32-36) g/dL RDW 14.0 (11.5-14.0) % Plt Count 159 (150-450) x10^3/uL MPV 11.4 H (7.5-11.0) fL Gran % 84.4 H (36.0-66.0) % Immature Gran % (Auto) 0.4 (0.00-0.4) % Nucleat RBC Rel Count 0.0 (0.00-0.1) % Eos # (Auto) 0.05 (0-0.5) x10^3/uL Immature Gran # (Auto) 0.04 H (0.00-0.03) x10^3u/L Absolute Lymphs (auto) 0.80 L (1.0-4.6) x10^3/uL Absolute Monos (auto) 0.54 (0.0-1.3) x10^3/uL Absolute Nucleated RBC 0.00 (0.00-0.01) x10^3u/L Lymphocytes % 8.6 L (24.0-44.0) % Monocytes % 5.8 (0.0-12.0) % Eosinophils % 0.5 (0.00-5.0) % Basophils % 0.3 (0.0-0.4) % Absolute Granulocytes 7.82 H (1.4-6.9) x10^3/uL Basophils # 0.03 (0-0.4) x10^3/uL PT (9.4-12.5) SECONDS INR (0.8-3.0) APTT (25.1-36.5) SECONDS Sodium (137-145) mmol/L Potassium (3.5-5.1) mmol/L Chloride (98-107) mmol/L Carbon Dioxide (22-30) mmol/L Anion Gap (5-15) MEQ/L BUN (9-20) mg/dL Creatinine (0.66-1.25) mg/dL Estimated GFR ML/MIN Glucose (74-106) mg/dL Lactic Acid 1.3 (0.4-2.0) Calcium (8.4-10.2) mg/dL Total Bilirubin (0.2-1.3) mg/dL AST (17-59) U/L ALT (0-50) U/L Alkaline Phosphatase (38-126) U/L Troponin I (0.000-0.034) ng/mL Serum Total Protein (6.3-8.2) g/dL Albumin (3.5-5.0) g/dL Ethyl Alcohol (0-10) mg/dL ABO Group Rh Factor Antibody Screen (NEGATIVE) Crossmatch (COMPATIBLE) - Progress Progress: improved, re-examined Progress Note: 10/03/23 15:24 68 years old is evaluated for coffee-ground emesis and black tarry stool with hypotension and symptomatic anemia. Patient is given fluid bolus and TXA by EMS , patient is awake alert and blood pressure borderline on presentation. He is given more fluid bolus and given him a bolus of Protonix followed by Protonix drip. Workup showed normal white count and a drop of hemoglobin from 10.8-8.3 and chemistries with a BUN of 105 and creatinine of 2.2 with some acute on chronic kidney injury. Patient has elevated liver enzymes with normal total bili. EKG is sinus rhythm with no acute ST elevation and negative troponins. I have discussed with patient/daughter in detail about risk and benefits of transfusion and they want to go ahead with transfusions. Although patient hemoglobin is 8.3 but he is clinically symptomatic and possibly having active bleeding, we will go ahead and transfuse him with 2 units. I have discussed with Dr. Mac who has seen patient here in the ER and recommended transfer to facility with other specialty services availability especially the cardiology with his recent stent placement. Discussed with patient and family about transfer and they wanted to go to [facility], [facility] transfer center is called and discussed with hospitalist, reviewed history, workup and agreed with transfer. Waiting on the bed. 10/03/23 16:51 Although patient has been accepted for transfer at [facility], called [facility] but no beds are available. No ETA on bed availability. Discussed with family and they are okay with going to [facility]. I have called [facility] and no GI services are available. We have called [facility] as well with no acceptance. Discussed with Dr. Lazo at [facility], reviewed history, workup and agreed with transfer. 10/03/23 19:49 Patient is feeling much better on reevaluation prior to transfer to [facility]. Blood pressure improved and 100s. Patient is receiving blood. Stable for transfer. Discussed with : Other Counseled pt/family regarding: lab results, diagnosis, rad results Medical Desision Making - Discussion of managment Care discussed with:: specialist Reviewed:: Test results Agreed on:: Treatment plan Will see patient: in hospital - Risk of complications The pt has a high risk of morbidity or mortality based on: Decision regarding hospitilization or escalation of hosp level of care - Departure Departure Disposition: Transfer Clinical Impression: GI bleed, Symptomatic anemia, Acute kidney injury superimposed on CKD Condition: Serious Critical Care Time: Yes Critical Care Time(excluding separately billable procedures): Critical 30-74 mins Referrals: ANA ROCA MD [Primary Care Provider] - Follow up/PCP as directed
[2023-10-03 14:05] LABS: ALBUMIN 2.6 g/dL (3.5-5.0); ALKALINE PHOSPHATASE 129 U/L (38-126); ANION GAP 15.3 MEQ/L (5-15); BLOOD UREA NITROGEN 105 mg/dL (9-20); CHLORIDE 111 mmol/L (98-107); Calcium 7.8 mg/dL (8.4-10.2); EST GLOMERULAR FILTRATION RATE 31.4 ML/MIN; ETHYL ALCOHOL < 10 mg/dL (0-10); Glucose 105 mg/dL (74-106); PROTIME 10.9 SECONDS (9.4-12.5); Potassium 3.7 mmol/L (3.5-5.1); SGOT/AST 100 U/L (17-59); SGPT/ALT 228 U/L (0-50); SODIUM 136 mmol/L (137-145)
[2023-10-03 14:13] LABS: Carbon Dioxide 13 mmol/L (22-30)
[2023-10-03 14:28] LABS: ABO TYPING O; Antibody Screen NEGATIVE (NEGATIVE); RH TYPING NEGATIVE
[2023-10-03] MEDS ORDERED: Sodium Chloride 0.9% 500 ML 0 ML IV ONE (14:33)
--- NOTE | 2023-10-03 15:56 | XRAY ---
CLINICAL HISTORY: vomiting /sob TECHNIQUE: Spiral axial continuous cuts were taken through the chest with multiplanar reformatting and without contrast administration. COMPARISON: None. FINDINGS: Bilateral hyperinflated lungs with low flat diaphragm. Bilateral emphysematous lung changes with coarse interstitium mainly posteriorly, multiple subpleural paraseptal blebs, and small pneumocele. Bilateral basal pleuropulmonary reaction and subsegmental atelectatic bands. No evidence of nodules, masses, or consolidation. No significant hilar or mediastinal lymph darin enlargement. Normal cardiac size and shape with no pericardial effusion. Dense mural calcification of the aorta and coronary vessels. The visualized pleural sacs, chest wall, and axillary spaces display normal appearance. Bone window settings showed spondylotic changes of the thoracic spine. A large diaphragmatic hernia is noted. Scanned upper abdominal cuts showed a small hypodense hepatic focal lesion. cyst. IMPRESSION: 1. Bilateral emphysematous lung changes with coarse interstium mainly posteriorly, multiple subpleural paraseptal blebs and small pneumocele. 2. Bilateral basal pleuropulmonary reaction and subsegmental atelectatic bands. 3. A large diaphragmatic hernia for clinical correlation. 4. A small hepatic focal lesion? cyst for correlation with U/S findings. Electronically Signed by: Milena Atkins MD. (10/03/2023 15:51:11 EST)
--- NOTE | 2023-10-03 16:20 | XRAY ---
CLINICAL HISTORY: vomiting TECHNIQUE: CT of the abdomen and pelvis was performed with axial images as well as sagittal and coronal reconstruction images without intravenous contrast. Images were reviewed in soft tissue and bone window settings. COMPARISON: None. FINDINGS: Visualized sections of lower chest shows fibroatelectatic changes in both lower lobes. Large hiatus hernia with the herniation of stomach into the mediastinum. Prominent lymphnode measuring 0.7 cm in short axis is seen in epicardial region SE 6 IM # 7. The liver is normal in size, morphology and position. The liver appears unremarkable with no intra or extrahepatic bile duct dilation. A small hypoechoic area measuring 1.1 cm is seen in the segment V of the right lobe of liver. Portal vein appears normal in caliber. Gallbladder appears distended with no obvious stones wall thickening or pericholecystic inflammatory changes or fluid. Unremarkable appearing pancreas. No pancreatic mass or ductal dilatation is seen. Unremarkable appearing spleen. Both adrenal glands appear normal. Small mid line defect measuring 2.0 cm at the umblicus with herniation of mesenteric fat. The right kidney shows compensatory hypertrophy measuring about 13.9 cm. No cysts, calculi, masses or hydronephrosis. Left kidney is surgically absent. Surgical jas are seen in the left renal bed and occupied by bowel loops. The ureters are normal with no stones. Urinary bladder appears normally distended and unremarkable. Prostate appears enlarged measuring 4.9 x 4.0 x 4.5 cm in AP x TR x CC dimensions with a volume of 45 ml. Unremarkable abdominal aorta without specific evidence of aneurysm or dissection. IVC is normal. The stomach is partially collapsed and appears grossly unremarkable. Unremarkable appearing duodenum. Small Bowel and colon are non-distended. No free air and no ascites. No free intraperitoneal air is seen. A few tiny air-filled outpouchings noted in the large bowel representing diverticulosis. No adjacent significant fat stranding identified to suggest acute diverticulitis. The appendix is visualized and appears unremarkable. Bilateral fat-containing inguinal hernias Visualized bones appear unremarkable. IMPRESSION: Large hiatus hernia with the herniation of stomach into the mediastinum. A small hypoechoic area measuring 1.1 cm is seen in the segment V of the right lobe of liver to small to characterize. Further evaluation with contrast enhanced CT can be done. Small umblical hernia containing mesenteric fat. Surgically absent left kidney. Mild Enlarged prostate gland. Colonic diverticulosis without the evidence of diverticulitis. Bilateral fat-containing inguinal hernias. Electronically Signed by: Milena Atkins MD. (10/03/2023 16:16:35 EST)
[2023-10-03 16:40] LABS: CROSS MATCH (PRBC) COMPATIBLE (COMPATIBLE)
[2023-10-03 16:41] LABS: CROSS MATCH (PRBC) COMPATIBLE (COMPATIBLE)
[2023-10-03] MEDS ORDERED: Zithromax 500 MG/ 250 ML NaCl Premix 500 MG/250 ML IVPB IV ONE (16:46)
[2023-10-03] MEDS: Zithromax 500 MG/ 250 ML NaCl Premix 500 MG/250 ML IVPB IV ONE (16:50)
[2023-10-03 18:42] VITALS: TEMP 97.2
[2023-10-03] MEDS ORDERED: Sodium Chloride 0.9% 100 ML ONE (19:10)
[2023-10-03] MEDS ORDERED: AZACTAM 1 GM ONE (19:10)
[2023-10-03] MEDS: AZACTAM 1 GM*** 2 GM in Sodium Chloride 0.9% 100 ML IV ONE (19:35)
[2023-10-03 19:50] VITALS: O2SAT 92
[2023-10-03 20:21] VITALS: BP 102/58; PULSE 85; RESP 19
--- NOTE | 2023-10-03 20:38 | XRAY ---
Indication: Vomiting blood. Comparison: May 03, 2019 Portable chest hyperinflated and clear. Heart not enlarged again with moderate sized hiatal hernia. Bony thorax intact again with osteopenia and degenerative changes. Impression: Nonacute hyperinflated chest with chronic features.
--- NOTE | 2023-10-05 13:47 | CONS ---
CONSULT DATE: 10/03/2023 HISTORY: I was seeing another patient in the ER at [facility] when the ER doctor asked me to look at this 68-year-old gentleman in room 3. He had some vomiting, diarrhea and coffee ground emesis the past few days. He had some hypotension. He had been having some abdominal pain. He was weak and could not walk today. He had some chest pain. He had a recent myocardial infarction and multiple stents he said in the past two or three months. He was dizzy and passing out. His hemoglobin was 8.3 when the ER doctor saw him. His pulse oximetry was up to 99 on 4 liters of oxygen. He denied any abdominal pain at this point. He had recent myocardial infarction at [facility] with multiple stents placed. He had GI work up. PAST MEDICAL HISTORY: Chronic obstructive pulmonary disease, hypertension, hyperlipidemia, peptic ulcer, GI bleed in the past. Kidney cancer follow up nephrectomy. Anxiety. Back trauma in the past. PAST SURGICAL HISTORY: Facial reconstruction from trauma in the past. Nephrectomy. HOME MEDICATIONS: Alprazolam, tamsulosin, metoprolol, allopurinol, amlodipine, aspirin, atorvastatin, cyclobenzaprine, Zetia, Ferrocite, omeprazole, paroxetine. He has also been on Brilinta. ALLERGIES: MORPHINE. PENICILLIN. FAMILY HISTORY: Noncontributory to this particular problem. SOCIAL HISTORY: Former smoker, does drink some alcohol. REVIEW OF SYSTEMS: Twelve systems reviewed per admission assessment and as noted above. He denies any abdominal pain currently. PHYSICAL EXAMINATION: GENERAL: A chronically ill gentleman. HEENT: Sclera nonicteric. EOMI. NECK: No JVD. CHEST: Equal excursion, nonlabored breathing. CVS: Regular rhythm and pulse. ABDOMEN: Soft, nontender. No peritoneal signs. EXTREMITIES: No cyanosis. NEURO: Alert, moving extremities grossly symmetrically. PSYCH: Appropriate mood and affect. IMPRESSION: Hematemesis, loose stools with nausea, vomiting and generalized weakness. I also discussed with Dr. Pablo. I also discussed with anesthesia. Given this patient's recent myocardial infarction and multiple procedures, GI at [place], given his alcohol use whether he has any varices, gastritis or ulcer disease or other etiology is unclear. I feel given his comorbidities and recent myocardial infarction, I feel he ought to be a candidate to send back to [facility] for higher level of care. If he has varices it would be best to be followed by GI as our group does not band varices. Dr. Pablo is going to talk to anesthesia as we felt this patient needs to be transferred due to his illness and comorbidities. Otherwise, he will be typed and crossed next and might need transfusion at some point. I was asked to see the patient by Dr. Pablo. Otherwise, continue medical management. Hold his hypertensive medications right now. Medical management of his hyperlipidemia, heart disease, continue omeprazole, Protonix or proton pump inhibitor.
== END 2023-10-03 20:29 | disposition short-term general hospital (02) ==
LOC: ED 13:07
DX: K92.2 Gastrointestinal hemorrhage, unspecified (principal); D64.9 Anemia, unspecified; N17.9 Acute kidney failure, unspecified; I12.9 Hypertensive chronic kidney disease with stage 1 through stage 4 chronic kidney disease, or unspecified chronic kidney disease; N18.9 Chronic kidney disease, unspecified; K92.1 Melena; R11.10 Vomiting, unspecified; R53.1 Weakness; R42 Dizziness and giddiness; R06.02 Shortness of breath; E78.5 Hyperlipidemia, unspecified; Z79.02 Long term (current) use of antithrombotics/antiplatelets; Z79.899 Other long term (current) drug therapy
CPT/HCPCS: 36000; 36415; 36430; 71045; 71250; 74176; 80053; 82077; 83605; 84484; 85025; 85610; 85730; 86850; 86900; 86901; 86922; 93041; 96375; 99285; 99291; P9016; 96374; J0456; J2405